=== PATIENT | male | born 1940 | race Caucasian/White ===

== ENCOUNTER → 2018-01-11 | Outpatient (CLI) | payer MEDICARE, BC | LOC: RAD 14:02 | PROVIDERS: ATTEND Internal Medicine | DX: R60.0 Localized edema (principal) | CPT/HCPCS: 93971 ==

== ENCOUNTER 2021-09-04 10:35 | Inpatient (IN) | payer BC, MEDICARE ==
[~2021-09-04] VITALS: Ht 182.9 cm; Wt 83.9 kg
[2021-09-04] MEDS ORDERED: ASPIRIN 81 MG CHEW TAB PO STA (10:39)
[2021-09-04] MEDS ORDERED: FUROSEMIDE INJ 10 MG/ML 4 ML VIAL IV ONE (10:45)
[2021-09-04 10:52] LABS: BASOPHILS # (AUTO) 0.1 (0.0-0.1); BASOPHILS % 0.6 % (0.0-1.0); EOSINOPHILS # (AUTO) 0.3 (0.0-0.4); EOSINOPHILS % 2.5 % (0.0-6.0); HEMATOCRIT 54.9 % (38.2-49.6); HEMOGLOBIN 17.1 g/dL (14.0-18.0); LYMPHOCYTES # (AUTO) 1.2 (1.0-3.2); LYMPHOCYTES % 8.7 % (18.0-39.1); MEAN CORPUSCULAR HEMOGLOBIN 28.3 pg (28-32); MEAN CORPUSCULAR HGB CONC 31.1 g/dL (31-35); MEAN CORPUSCULAR VOLUME 90.9 fL (81-99); MONOCYTES # (AUTO) 1.6 (0.2-0.8); MONOCYTES % 11.3 % (4.4-11.3); NEUTROPHILS # (AUTO) 10.5 (2.1-6.9); NEUTROPHILS % 76.5 % (38.7-80.0); PLATELET COUNT 322 x10e3/uL (140-360); RED BLOOD COUNT 6.04 x10e6/uL (4.3-5.7); RED CELL DISTRIBUTION WIDTH 15.8 % (11.7-14.4)
[2021-09-04 11:14] LABS: ALBUMIN 3.5 g/dL (3.5-5.0); ALBUMIN/GLOBULIN RATIO 1.4 (0.8-2.0); ANION GAP 11.9 mmol/L (8-16); CALCIUM 8.9 mg/dL (8.4-10.2); CREATININE, SERUM 1.3 mg/dL (0.72-1.25); POTASSIUM 3.9 mmol/L (3.5-5.1)
[2021-09-04 11:21] LABS: CREATINE KINASE MB 5.1 ng/mL (0-5.0)
[2021-09-04 11:22] LABS: INR 2.78; PROTHROMBIN TIME 31.5 seconds (11.9-14.5)
[2021-09-04 11:23] LABS: PARTIAL THROMBOPLASTIN TIME 45.8 seconds (23.8-35.5)
[2021-09-04] MEDS ORDERED: LIPITOR10 MG PO (16:39)
[2021-09-04] MEDS ORDERED: DIGOXIN125 MCG PO (16:39)
[2021-09-04] MEDS ORDERED: OMEPRAZOLE40 MG PO (16:39)
[2021-09-04] MEDS ORDERED: METOPROLOL SUCC50 MG PO (16:39)
[2021-09-04] MEDS ORDERED: XARELTO20 MG PO (16:39)
[2021-09-04] MEDS ORDERED: HYDROXYCHLOROQ200 MG PO (16:39)
[2021-09-04] MEDS ORDERED: CITALOPRAM HBR20 MG PO (16:39)
[2021-09-04] MEDS ORDERED: FOLIC ACID0.4 MG PO (16:39)
[2021-09-04 17:11] VITALS: BP 143/109
[2021-09-04 17:12] VITALS: BP 138/100
[2021-09-04] MEDS: FUROSEMIDE INJ 10 MG/ML 4 ML VIAL IV SCH (20:59)
[2021-09-04] MEDS ORDERED: METOPROLOL TARTRATE INJ 1 MG/ML VIAL IV PRN (21:00)
[2021-09-04] MEDS ORDERED: HYDRALAZINE HCL 20 MG/ML VIAL IV PRN (21:00)
[2021-09-04] MEDS: CITALOPRAM HYDROBROMIDE 20 MG TAB PO SCH (21:00)
[2021-09-04] MEDS: ATORVASTATIN 20 MG TAB PO SCH (21:00)
[2021-09-04] MEDS ORDERED: ONDANSETRON HCL INJ 2MG/ML 2ML 2 MG/ML VIAL IV PRN (21:00)
[2021-09-04] MEDS ORDERED: ACETAMINOPHEN 325 MG TAB PO PRN (21:00)
[2021-09-04 21:26] VITALS: BP 141/104
[2021-09-04] MEDS ORDERED: SODIUM CHLORIDE 0.9% 250ML 250 ML ONE (21:28)
[2021-09-04] MEDS: CEFEPIME 1 GM in SODIUM CHLORIDE 0.9% 50ML 50 ML IV SCH (22:01)
[2021-09-04 22:14] LABS: THYROID STIMULATING HORMONE 2.502 uIU/mL (0.350-4.940)
[2021-09-04 22:15] LABS: DIGOXIN < 0.30 ng/mL (0.8-2.0)
[2021-09-04 22:31] VITALS: BP 141/104
[2021-09-05] VITALS (8 sets, daily range): BP systolic 115–154; BP diastolic 86–109
[2021-09-05 04:58] LABS: BASOPHILS # (AUTO) 0.1 (0.0-0.1); BASOPHILS % 0.5 % (0.0-1.0); EOSINOPHILS # (AUTO) 0.3 (0.0-0.4); EOSINOPHILS % 2.5 % (0.0-6.0); HEMATOCRIT 56.1 % (38.2-49.6); HEMOGLOBIN 17.9 g/dL (14.0-18.0); LYMPHOCYTES # (AUTO) 1.3 (1.0-3.2); LYMPHOCYTES % 9.6 % (18.0-39.1); MEAN CORPUSCULAR HGB CONC 31.9 g/dL (31-35); MEAN CORPUSCULAR VOLUME 87.7 fL (81-99); MONOCYTES # (AUTO) 1.6 (0.2-0.8); MONOCYTES % 11.9 % (4.4-11.3); NEUTROPHILS # (AUTO) 9.9 (2.1-6.9); PLATELET COUNT 308 x10e3/uL (140-360); RED CELL DISTRIBUTION WIDTH 16.5 % (11.7-14.4)
[2021-09-05 05:26] LABS: CALCIUM 8.8 mg/dL (8.4-10.2); CREATININE, SERUM 1.16 mg/dL (0.72-1.25)
[2021-09-05] MEDS ORDERED: CARVEDILOL 3.125 MG TAB PO SCH (09:00)
[2021-09-05] MEDS ORDERED: NON-FORMULARY MEDICATION (Folic Acid* 1 MG) PO SCH (09:00)
[2021-09-05] MEDS: DIGOXIN 0.125 MG TAB PO SCH (09:37)
[2021-09-05] MEDS: FOLIC ACID 1 MG TAB PO SCH (09:37)
[2021-09-05] MEDS: HYDROXYCHLOROQUINE SULFATE 200 MG TAB PO SCH (09:37)
[2021-09-05] MEDS: CEFEPIME 1 GM in SODIUM CHLORIDE 0.9% 50ML 50 ML IV SCH ×2 (09:37→21:30)
[2021-09-05] MEDS: FUROSEMIDE INJ 10 MG/ML 4 ML VIAL IV SCH ×2 (09:37→21:30)
[2021-09-05] MEDS: METOPROLOL SUCCINATE 50 MG TAB XL PO SCH (09:38)
[2021-09-05] MEDS: PANTOPRAZOLE SOD 40 MG TABEC PO SCH (09:38)
[2021-09-05] MEDS: RIVAROXABAN 20 MG TABLET PO SCH (09:38)
[2021-09-05] MEDS ORDERED: POTASSIUM CHLORIDE 20 MEQ TAB CR PO ONE (10:01)
[2021-09-05] MEDS: ATORVASTATIN 20 MG TAB PO SCH (21:30)
[2021-09-05] MEDS: CITALOPRAM HYDROBROMIDE 20 MG TAB PO SCH (21:30)
[2021-09-06] VITALS (10 sets, daily range): BP systolic 92–142; BP diastolic 66–97
[2021-09-06] MEDS ORDERED: LORAZEPAM INJ 2 MG/ML VIAL IV ONE (00:15)
[2021-09-06 06:48] LABS: BASOPHILS # (AUTO) 0.1 (0.0-0.1); BASOPHILS % 0.6 % (0.0-1.0); EOSINOPHILS # (AUTO) 0.4 (0.0-0.4); EOSINOPHILS % 2.9 % (0.0-6.0); HEMATOCRIT 58.7 % (38.2-49.6); HEMOGLOBIN 18.8 g/dL (14.0-18.0); LYMPHOCYTES # (AUTO) 1.3 (1.0-3.2); LYMPHOCYTES % 10.4 % (18.0-39.1); MEAN CORPUSCULAR HEMOGLOBIN 27.7 pg (28-32); MEAN CORPUSCULAR VOLUME 86.5 fL (81-99); MONOCYTES # (AUTO) 1.5 (0.2-0.8); MONOCYTES % 12.1 % (4.4-11.3); NEUTROPHILS # (AUTO) 8.8 (2.1-6.9); NEUTROPHILS % 73.3 % (38.7-80.0); PLATELET COUNT 272 x10e3/uL (140-360); RED BLOOD COUNT 6.79 x10e6/uL (4.3-5.7); RED CELL DISTRIBUTION WIDTH 16.7 % (11.7-14.4)
[2021-09-06 07:04] LABS: ANION GAP 16.4 mmol/L (8-16); CALCIUM 9.2 mg/dL (8.4-10.2); CREATININE, SERUM 1.14 mg/dL (0.72-1.25); POTASSIUM 3.4 mmol/L (3.5-5.1)
[2021-09-06] MEDS: DIGOXIN 0.125 MG TAB PO SCH (09:00)
[2021-09-06] MEDS: FUROSEMIDE INJ 10 MG/ML 4 ML VIAL IV SCH ×2 (09:12→20:15)
[2021-09-06] MEDS: PANTOPRAZOLE SOD 40 MG TABEC PO SCH (09:12)
[2021-09-06] MEDS: HYDROXYCHLOROQUINE SULFATE 200 MG TAB PO SCH (09:12)
[2021-09-06] MEDS: FOLIC ACID 1 MG TAB PO SCH (09:12)
[2021-09-06] MEDS: CEFEPIME 1 GM in SODIUM CHLORIDE 0.9% 50ML 50 ML IV SCH ×2 (09:12→20:15)
[2021-09-06] MEDS: METOPROLOL SUCCINATE 50 MG TAB XL PO SCH (09:13)
[2021-09-06] MEDS: RIVAROXABAN 20 MG TABLET PO SCH (12:14)
[2021-09-06] MEDS: AMIODARONE HCL 200 MG TAB PO SCH (16:43)
[2021-09-06] MEDS: CITALOPRAM HYDROBROMIDE 20 MG TAB PO SCH (20:15)
[2021-09-06] MEDS: ATORVASTATIN 20 MG TAB PO SCH (20:15)
[2021-09-07] VITALS (8 sets, daily range): BP systolic 114–127; BP diastolic 81–95
[2021-09-07] MEDS: HYDROXYCHLOROQUINE SULFATE 200 MG TAB PO SCH (08:57)
[2021-09-07] MEDS: AMIODARONE HCL 200 MG TAB PO SCH ×2 (08:57→17:00)
[2021-09-07] MEDS: PANTOPRAZOLE SOD 40 MG TABEC PO SCH (08:57)
[2021-09-07] MEDS: CEFEPIME 1 GM in SODIUM CHLORIDE 0.9% 50ML 50 ML IV SCH ×2 (08:57→20:36)
[2021-09-07] MEDS: METOPROLOL SUCCINATE 50 MG TAB XL PO SCH (08:57)
[2021-09-07] MEDS: RIVAROXABAN 20 MG TABLET PO SCH (08:57)
[2021-09-07] MEDS: FOLIC ACID 1 MG TAB PO SCH (08:57)
[2021-09-07] MEDS: FUROSEMIDE INJ 10 MG/ML 4 ML VIAL IV SCH ×2 (08:57→20:36)
[2021-09-07] MEDS: CITALOPRAM HYDROBROMIDE 20 MG TAB PO SCH (20:36)
[2021-09-07] MEDS: ATORVASTATIN 20 MG TAB PO SCH (20:36)
[2021-09-08] VITALS (7 sets, daily range): BP systolic 92–127; BP diastolic 62–91
[2021-09-08] MEDS: FOLIC ACID 1 MG TAB PO SCH (09:33)
[2021-09-08] MEDS: RIVAROXABAN 20 MG TABLET PO SCH (09:33)
[2021-09-08] MEDS: HYDROXYCHLOROQUINE SULFATE 200 MG TAB PO SCH (09:33)
[2021-09-08] MEDS: FUROSEMIDE INJ 10 MG/ML 4 ML VIAL IV SCH (09:33)
[2021-09-08] MEDS: PANTOPRAZOLE SOD 40 MG TABEC PO SCH (09:33)
[2021-09-08] MEDS: AMIODARONE HCL 200 MG TAB PO SCH ×2 (09:33→17:28)
[2021-09-08] MEDS: CEFEPIME 1 GM in SODIUM CHLORIDE 0.9% 50ML 50 ML IV SCH ×2 (09:33→21:00)
[2021-09-08] MEDS: METOPROLOL SUCCINATE 50 MG TAB XL PO SCH (09:34)
[2021-09-08] MEDS: ATORVASTATIN 20 MG TAB PO SCH (21:41)
[2021-09-08] MEDS: CITALOPRAM HYDROBROMIDE 20 MG TAB PO SCH (21:41)
[2021-09-09] VITALS (7 sets, daily range): BP systolic 100–148; BP diastolic 64–107
[2021-09-09] MEDS: CEFEPIME 1 GM in SODIUM CHLORIDE 0.9% 50ML 50 ML IV SCH ×2 (08:12→20:09)
[2021-09-09] MEDS: AMIODARONE HCL 200 MG TAB PO SCH ×2 (08:20→16:15)
[2021-09-09] MEDS: FOLIC ACID 1 MG TAB PO SCH (08:20)
[2021-09-09] MEDS: BUMETANIDE 1 MG TAB PO SCH ×2 (08:20→16:15)
[2021-09-09] MEDS: DIGOXIN 0.125 MG TAB PO SCH (08:21)
[2021-09-09] MEDS: HYDROXYCHLOROQUINE SULFATE 200 MG TAB PO SCH (08:21)
[2021-09-09] MEDS: PANTOPRAZOLE SOD 40 MG TABEC PO SCH (08:21)
[2021-09-09] MEDS: POTASSIUM CHLORIDE 20 MEQ TAB CR PO SCH (08:21)
[2021-09-09 08:30] LABS: ANION GAP 14.2 mmol/L (8-16); CALCIUM 8.9 mg/dL (8.4-10.2); CREATININE, SERUM 1.28 mg/dL (0.72-1.25); POTASSIUM 3.2 mmol/L (3.5-5.1)
[2021-09-09] MEDS: RIVAROXABAN 20 MG TABLET PO SCH (09:59)
[2021-09-09] MEDS: METOPROLOL SUCCINATE 50 MG TAB XL PO SCH (11:25)
[2021-09-09] MEDS: ATORVASTATIN 20 MG TAB PO SCH (20:09)
[2021-09-09] MEDS: CITALOPRAM HYDROBROMIDE 20 MG TAB PO SCH (20:09)
[2021-09-10 05:22] LABS: ANION GAP 14.4 mmol/L (8-16); CALCIUM 8.8 mg/dL (8.4-10.2); CREATININE, SERUM 1.44 mg/dL (0.72-1.25); POTASSIUM 3.4 mmol/L (3.5-5.1)
[2021-09-10 05:27] VITALS: BP 106/86
[2021-09-10 08:36] VITALS: BP 121/89
[2021-09-10] MEDS: CEFEPIME 1 GM in SODIUM CHLORIDE 0.9% 50ML 50 ML IV SCH (08:53)
[2021-09-10] MEDS: HYDROXYCHLOROQUINE SULFATE 200 MG TAB PO SCH (08:55)
[2021-09-10] MEDS: PANTOPRAZOLE SOD 40 MG TABEC PO SCH (08:55)
[2021-09-10] MEDS: POTASSIUM CHLORIDE 20 MEQ TAB CR PO SCH (08:55)
[2021-09-10] MEDS: AMIODARONE HCL 200 MG TAB PO SCH (08:55)
[2021-09-10] MEDS: FOLIC ACID 1 MG TAB PO SCH (08:55)
[2021-09-10] MEDS: BUMETANIDE 1 MG TAB PO SCH (08:55)
[2021-09-10] MEDS: METOPROLOL SUCCINATE 50 MG TAB XL PO SCH (08:55)
[2021-09-10] MEDS: RIVAROXABAN 20 MG TABLET PO SCH (08:55)
[2021-09-10] MEDS: DIGOXIN 0.125 MG TAB PO SCH (08:55)
== END 2021-09-10 09:32 | disposition home or self-care (01) | DRG 291 ==
LOC: ER 10:39 → ERHOLD 12:34 → MED/SURG2 15:57 → OBSVTOIN 09-07 09:06
PROVIDERS: ADMIT Internal Medicine; ATTEND Internal Medicine
DX: I11.0 Hypertensive heart disease with heart failure (principal); I50.23 Acute on chronic systolic (congestive) heart failure; I48.92 Unspecified atrial flutter; F03.91 Unspecified dementia, unspecified severity, with behavioral disturbance; F05 Delirium due to known physiological condition; N17.9 Acute kidney failure, unspecified; Z79.01 Long term (current) use of anticoagulants; E78.5 Hyperlipidemia, unspecified; Z20.822 Contact with and (suspected) exposure to COVID-19; I25.10 Atherosclerotic heart disease of native coronary artery without angina pectoris; Z95.1 Presence of aortocoronary bypass graft; D75.1 Secondary polycythemia; D75.839 Thrombocytosis, unspecified; G47.33 Obstructive sleep apnea (adult) (pediatric); R60.0 Localized edema
CPT/HCPCS: 36415; 71045; 80048; 80053; 80162; 82550; 82553; 83880; 84443; 84484; 85025; 85610; 85730; 93005; 93306; 97139; 99251; 99284; G0378; J0692; J1940; J2060; J7050; U0002